=== PATIENT | male | born 2005 | race Two or more races ===

== ENCOUNTER 2024-11-26 02:46 | Emergency (ER) | payer OTHER ==
[~2024-11-26] VITALS: Ht 182.9 cm; Wt 77.1 kg
[2024-11-26] MEDS ORDERED: KETOROLAC TROMETHAMINE 10 MG TABLET PO STA (03:48)
[2024-11-26] MEDS ORDERED: KETOROLAC TROMETHAMINE 10 MG TABLET PO ONE (03:56)
== END 2024-11-26 04:57 | disposition home or self-care (01) ==
LOC: ER 02:46 → EMR PED 02:56
DX: M25.511 Pain in right shoulder (principal)